=== PATIENT | female | born 1970 | race Caucasian/White ===

== ENCOUNTER → 2017-06-10 | Outpatient (CLI) | payer BC ==
--- NOTE | 2017-06-10 10:46 | DIAGNOSTIC IMAGING REPORT ---
KUB CLINICAL HISTORY: 46 years-old Female presenting with LEFT URETERAL STONE. TECHNIQUE: Single supine view of the abdomen was obtained. COMPARISON: None. FINDINGS: No convincing calcification over the kidneys. A possible calcification may be present along the course of the proximal left ureter at the level of the left L4 transverse process. Few pelvic phleboliths noted. Nonobstructive bowel gas pattern. Osseous structures normal. IMPRESSION: 1. Questionable proximal left ureteral calculus. This be better evaluated with noncontrast CT. Electronically signed by: Glenn Goldman M.D. 06/10/2017 10:45 AM Dictated Date/Time: 06/10/2017 10:43 AM
== END | disposition home or self-care (01) ==
LOC: C.RADBC 10:22
PROVIDERS: ATTEND Nurse Practitioner Family
DX: N20.2 Calculus of kidney with calculus of ureter (principal)

== ENCOUNTER → 2017-06-10 | Outpatient (CLI) | payer BC | END | disposition home or self-care (01) | LOC: C.LABSPEC 17:32 | PROVIDERS: ATTEND Nurse Practitioner Family | DX: N20.1 Calculus of ureter (principal) ==

== ENCOUNTER → 2017-06-18 | Outpatient (CLI) | payer BC ==
--- NOTE | 2017-06-18 13:26 | DIAGNOSTIC IMAGING REPORT ---
CT OF THE ABDOMEN AND PELVIS WITHOUT CONTRAST CLINICAL HISTORY: Left ureteral stone. COMPARISON STUDY: KUB June 10, 2017 TECHNIQUE: Axial images of the abdomen and pelvis were obtained without IV contrast. Images were reviewed in the axial, sagittal, and coronal planes. A dose lowering technique was utilized adhering to the principles of ALARA. FINDINGS: A 7 mm x 6 mm proximal left ureteral calculus is unchanged in position since exam of June 10, 2017 located at the L4 level. There is a 5 mm left renal calculus. There is mild left hydronephrosis. There are no right ureteral calculi. A left breast implant is partially imaged. Fatty infiltration of the liver is noted. Evaluation of the remainder of the abdomen and pelvis is suboptimal on this unenhanced exam. There is a calcified granuloma within the spleen. Unenhanced images of the adrenal glands and pancreas are normal. There is colonic diverticulosis without evidence for acute diverticulitis. A tiny fat-containing umbilical hernia is present. There is no lymphadenopathy within the abdomen or the pelvis. No suspicious osseous lesions are present. IMPRESSION: 1. No change in position of the 7 mm x 6 mm proximal left ureteral calculus since KUB of June 10, 2017. Mild left hydronephrosis. 2. 5 mm left renal calculus. 3. Colonic diverticulosis without evidence for acute diverticulitis. Electronically signed by: Leroy Dunlap M.D. 06/18/2017 1:25 PM Dictated Date/Time: 06/18/2017 1:17 PM
== END | disposition home or self-care (01) ==
LOC: C.CTS 13:02
PROVIDERS: ATTEND Nurse Practitioner Family
DX: N20.1 Calculus of ureter (principal)

== ENCOUNTER → 2017-06-23 | Outpatient (CLI) | payer BC ==
[~2017-06-23] MED LIST: ANAS1TAB19 PO; CHOL1000 PO; NAPR1TAB9 PO
== END | disposition home or self-care (01) ==
LOC: C.LABSPEC 18:00
PROVIDERS: ATTEND Nurse Practitioner Family

== ENCOUNTER → 2017-07-15 | Outpatient (CLI) | payer BC ==
--- NOTE | 2017-07-15 17:49 | DIAGNOSTIC IMAGING REPORT ---
KUB CLINICAL HISTORY: 46 years-old Female presenting with N20.1 Left ureteral stone. TECHNIQUE: Single supine view of the abdomen was obtained. COMPARISON: 07/03/2017. FINDINGS: Normal bowel gas pattern. No evidence of free intraperitoneal gas, pneumatosis, or portal venous gas. Calcification in the left kidney consistent with renal calculus. Previous seen noted calculus along the course of the left ureter is not apparent on the current exam. Multiple pelvic phleboliths noted in a similar distribution as on prior exam. Osseous structures normal. Lung bases clear. IMPRESSION: 1. Previously noted proximal left ureteral calculus is not immediately apparent, possibly indicating passage. 2. Left nephrolithiasis. Electronically signed by: Glenn Goldman M.D. 07/15/2017 5:48 PM Dictated Date/Time: 07/15/2017 5:45 PM
== END | disposition home or self-care (01) ==
LOC: C.RAD 16:18
PROVIDERS: ATTEND Nurse Practitioner Family
DX: N20.1 Calculus of ureter (principal); N20.0 Calculus of kidney